=== PATIENT | male | born 1945 | race Asian ===

== ENCOUNTER 2020-09-26 16:53 | Emergency (ER) | payer OTHER ==
[~2020-09-26] VITALS: Ht 180.3 cm; Wt 124.3 kg
[2020-09-26 17:53] LABS: PLATELET COUNT 213 K/uL (142-355)
[2020-09-26 19:59] VITALS: BP 128/80; TEMP 98.2
[2020-09-26] MEDS ORDERED: BUPROPION HYDR PO (22:36)
[2020-09-26] MEDS ORDERED: ALLO300T23 PO (22:38)
[2020-09-26] MEDS ORDERED: [UNRECOGNIZED DRUG - OTHER] EX ×2 (22:40→23:16)
[2020-09-26] MEDS ORDERED: POTASSIUM CHLO20 ME2 PO (22:42)
[2020-09-26] MEDS ORDERED: FURO40TA93 PO (22:44)
[2020-09-26] MEDS ORDERED: FLUOXETINE HYDR20 MG PO (22:46)
[2020-09-26] MEDS ORDERED: COLCHICINE0.6 MG PO (22:48)
[2020-09-26] MEDS ORDERED: METFORMIN HYD1000 MG PO (22:49)
[2020-09-26] MEDS ORDERED: HYDR10TA47 PO (22:51)
[2020-09-26] MEDS ORDERED: TIZANIDINE HYDRO2 MG PO (22:53)
[2020-09-26] MEDS ORDERED: FERROUS SULF325 M1 PO (22:57)
[2020-09-26] MEDS ORDERED: DULO30CA PO (22:59)
[2020-09-26] MEDS ORDERED: CYCL10TA35 PO (23:01)
[2020-09-26] MEDS ORDERED: ROBITUSS10 PO (23:03)
[2020-09-26] MEDS ORDERED: EUTHYROX25 MCG PO (23:07)
[2020-09-26] MEDS ORDERED: TRAZODONE HYDRO50 MG PO (23:09)
[2020-09-26] MEDS ORDERED: AMLODIPINE BESYLATE PO (23:11)
[2020-09-26] MEDS ORDERED: BASAGLAR K100 UNIT/M SC (23:13)
[2020-09-26] MEDS ORDERED: TAMS0.4C PO (23:14)
[2020-09-26] MEDS ORDERED: MAGNSUS68 PO (23:18)
[2020-09-26] MEDS ORDERED: BISA10SU8 RE (23:20)
[2020-09-26] MEDS ORDERED: ACET-206 PO (23:24)
[2020-09-26] MEDS ORDERED: ALBUSOL INH (23:28)
[2020-09-26] MEDS ORDERED: NOVOLOG100 UNIT/M SC (23:31)
[2020-09-26] MEDS ORDERED: GRALISE600 MG PO (23:34)
[2020-09-27] MEDS ORDERED: HYDR10TA47 PO (00:05)
[2020-10-06] MEDS ORDERED: MELOXICAM7.5 MG PO (13:52)
[2020-10-06] MEDS ORDERED: CYAN10009 IM (13:52)
[2020-10-06] MEDS ORDERED: LEVO0.0529 PO (13:53)
[2020-10-06] MEDS ORDERED: LOPE2CAP17 PO (13:53)
[2020-10-06] MEDS ORDERED: MAGN400T4 PO (13:53)
[2020-10-06] MEDS ORDERED: EMOLOIN22 TOP (13:54)
[2020-10-06] MEDS ORDERED: DULO30CA PO (13:54)
[2020-10-06] MEDS ORDERED: ESCI10TA PO (13:54)
[2020-10-06] MEDS ORDERED: COLC0.6T6 PO (13:55)
[2020-10-06] MEDS ORDERED: CHOL100034 PO (13:55)
[2020-10-06] MEDS ORDERED: DIVA250T PO (13:55)
[2020-10-06] MEDS ORDERED: ARIPIPRAZOLE10 MG PO (13:56)
[2020-10-06] MEDS ORDERED: ACET-206 PO (13:58)
[2020-10-06] MEDS ORDERED: METF500T PO (14:04)
[2020-10-06] MEDS ORDERED: INSU300I SC (14:05)
== END 2020-09-26 19:59 | disposition other institution (70) ==
LOC: ED 16:56
PROVIDERS: Family Medicine
DX: R46.89 Other symptoms and signs involving appearance and behavior (principal); Z11.59 Encounter for screening for other viral diseases; Z04.6 Encounter for general psychiatric examination, requested by authority; I10 Essential (primary) hypertension
CPT/HCPCS: 80053; 81000; 85027; 87635; 93005; 99283; 99285; U0003